=== PATIENT | female | born 1970 | race African-American/Black ===

== ENCOUNTER 2017-12-29 10:22 | Inpatient (IN) | payer MEDICARE, OTHER ==
[2017-12-29] MEDS ORDERED: IBUPROFEN 400 MG TABLET (FP) PO ONE ×2 (12:30→12:41)
[2017-12-29 12:59] LABS: BASO % 0.4 % (0-2.0); EOS % 0.3 % (0-4.5); HEMATOCRIT 30.6 % (32.4-45.2); LYMPH % 7.5 % (8-40); MCH 26.9 pg (25.7-33.7); MCHC 32.6 g/dl (32.0-36.0); MEAN CELL VOLUME 82.7 fl (80-96); MEAN PLT VOLUME 6.6 fl (7.5-11.1); MONO % 4.2 % (3.8-10.2); NEUT % 87.6 % (42.8-82.8); PLATELET COUNT 523 K/MM3 (134-434); RBC 3.69 M/mm3 (3.60-5.2); RDW 14.3 % (11.6-15.6); WHITE BLOOD COUNT 21.9 K/mm3 (4.0-10.0)
[2017-12-29 13:01] LABS: URINE APPEARANCE CLEAR; URINE BILIRUBIN NEGATIVE (<2.0 mg/dL); URINE COLOR STRAW; URINE GLUCOSE (UA) NEGATIVE (NEGATIVE); URINE KETONE NEGATIVE (NEGATIVE); URINE LEUK ESTERASE NEGATIVE (NEGATIVE); URINE NITRITE NEGATIVE (NEGATIVE); URINE PROTEIN NEGATIVE (NEGATIVE); URINE UROBILINOGEN NEGATIVE mg/dL (0.2-1.0)
--- NOTE | 2017-12-29 13:01 | PDOC ---
History of Present Illness - General Chief Complaint: Cold Symptoms Stated Complaint: FLU LIKE SYMPTOMS Time Seen by Provider: 12/29/17 12:29 History Source: Patient Exam Limitations: No Limitations - History of Present Illness Initial Comments: 12/29/17 12:52 47 yr female with c/o fever, chills started last night with lower abd pain to the left side. no vaginal discharge neg nvd neg back pain or urinary complaints. Pt states the lower abd pain comes and comes denies diarrhea or constipation. no sick contacts , recent cruise to [place] and [facility] , denies any rashes or insect bites. 12/29/17 14:30 Timing/Duration: reports: getting worse Severity: reports: moderate Past History - Travel Traveled outside of the country in the last 30 days: Yes If so, where?: [facility] Close contact w/someone who was outside of country & ill: No - Past Medical History Allergies/Adverse Reactions: Allergies Allergy/AdvReac Type Severity Reaction Status Date / Time No Known Allergies Allergy Verified 12/29/17 10:35 Home Medications: Ambulatory Orders Amlodipine Besylate [Norvasc -] 10 mg PO DAILY 12/29/17 Bupropion HCl [Bupropion HCl Sr] 100 mg PO BID 12/29/17 Cyclobenzaprine HCl 5 mg PO DAILY PRN 12/29/17 Famotidine [Pepcid] 40 mg PO DAILY 12/29/17 Lisinopril/Hydrochlorothiazide [Lisinopril-Hctz 20-12.5 mg Tab] 1 each PO DAILY 12/29/17 Mirtazapine [Remeron -] 30 mg PO DAILY 12/29/17 - Surgical History Abdominal Surgery: Yes ([facility] august 2017) - Suicide/Smoking/Psychosocial Hx Smoking History: Never smoked Have you smoked in the past 12 months: No Information on smoking cessation initiated: No Hx Alcohol Use: No Drug/Substance Use Hx: No *Physical Exam - Vital Signs Last Vital Signs Temp Pulse Resp BP Pulse Ox 103.1 F H 120 H 16 143/76 97 12/29/17 10:32 12/29/17 10:32 12/29/17 10:32 12/29/17 10:32 12/29/17 10:32 - Physical Exam General Appearance: Yes: Nourished, Appropriately Dressed HEENT: positive: EOMI, ATIF, TMs Normal, Pharynx Normal Neck: positive: Supple. negative: Tender Respiratory/Chest: positive: Lungs Clear, Normal Breath Sounds. negative: Chest Tender Cardiovascular: positive: Regular Rhythm, Regular Rate Gastrointestinal/Abdominal: positive: Normal Bowel Sounds, Soft Lymphatic: negative: Adenopathy Musculoskeletal: positive: Normal Inspection Extremity: positive: Normal Capillary Refill, Normal Inspection, Normal Range of Motion Integumentary: positive: Normal Color, Dry, Warm Neurologic: positive: Fully Oriented, Alert, Normal Mood/Affect, Normal Response , Motor Strength 07/24 ED Treatment Course - LABORATORY CBC & Chemistry Diagram: 12/30/17 06:00 12/30/17 06:30 - Medications Given in the ED: ED Medications Discontinued Medications Generic Name Dose Route Start Last Admin Trade Name Freq PRN Reason Stop Dose Admin Ibuprofen 800 mg 12/29/17 12:30 12/29/17 12:42 Motrin - PO 12/29/17 12:31 800 mg ONCE ONE Administration Medical Decision Making - Medical Decision Making 12/29/17 13:01 cc: fever chills since last night neg cough neg nvd will r/o flu r/o UTI, r/o colitis, diverticulitus 12/29/17 14:31 pt c/o feeling hungry. 12/29/17 15:30 12/29/17 15:37 temp 98.1 HR 83 RR 14 pulse ox 100% 12/29/17 17:14 spoke to RENAL and will consult on the patient agrees with the admission. continue ceftriaxone. will place ID consult . 12/29/17 17:20 spoke to and will accept admission. pt is aware and is stable at this time. *DC/Admit/Observation/Transfer Diagnosis at time of Disposition: Pyelonephritis, acute, Kidney abscess - Discharge Dispostion Condition at time of disposition: Good Decision to Admit order: Yes - Referrals - Patient Instructions - Post Discharge Activity
[2017-12-29 13:26] LABS: ALK PHOS 162 U/L (45-117); ANION GAP 5 MMOL/L (8-16); BILIRUBIN,TOTAL 0.4 mg/dL (0.2-1); BLOOD UREA NITROGEN 7 mg/dL (7-18); CHLORIDE 101 mmol/L (98-107); CO2 29 mmol/L (21-32); CREATININE 1.1 mg/dL (0.55-1.3); GLUCOSE,RANDOM 113 mg/dL (74-106); POTASSIUM 3.7 mmol/L (3.5-5.1); SGOT/AST 30 U/L (15-37); SGPT/ALT 24 U/L (13-61); SODIUM 136 mmol/L (136-145); TOT PROT 7.6 g/dl (6.4-8.2)
[2017-12-29 13:42] LABS: ANISOCYTOSIS 3+; MACROCYTOSIS 0; PLATELET ESTIMATE INCREASED; TEAR DROP CELLS 1+
[2017-12-29] MEDS ORDERED: CEFAZOLIN 1 GM in DEXTROSE 5%-WATER - 50 ML IVPB STA (14:13)
[2017-12-29] MEDS ORDERED: ceFAZolin SODIUM 1 GM VIAL ONE (14:22)
[2017-12-29] MEDS ORDERED: SODIUM CHLORIDE 1,000 ML IV SCH (16:45)
--- NOTE | 2017-12-29 18:17 | PDOC ---
*Physical Exam - Vital Signs Last Vital Signs Temp Pulse Resp BP Pulse Ox 98.6 F 75 15 108/61 100 12/29/17 16:50 12/29/17 16:50 12/29/17 16:50 12/29/17 16:50 12/29/17 16:50 ED Treatment Course - LABORATORY CBC & Chemistry Diagram: 12/29/17 12:40 12/29/17 12:40 - ADDITIONAL ORDERS Additional order review: Laboratory Results 12/29/17 12/29/17 12:40 12:40 Sodium 136 Potassium 3.7 Chloride 101 Carbon Dioxide 29 Anion Gap 5 L BUN 7 Creatinine 1.1 Creat Clearance w eGFR 52.79 Random Glucose 113 H Calcium 9.0 Total Bilirubin 0.4 AST 30 ALT 24 Alkaline Phosphatase 162 H Total Protein 7.6 Albumin 3.0 L Urine Color Straw Urine Appearance Clear Urine pH 6.0 Ur Specific [place] 1.005 L Urine Protein Negative Urine Glucose (UA) Negative Urine Ketones Negative Urine Blood Negative Urine Nitrite Negative Urine Bilirubin Negative Urine Urobilinogen Negative Ur Leukocyte Esterase Negative 12/29/17 12:40 Influenza Types A,B Antigen - Final Nasopharyngeal Swab - Final 12/29/17 12:40 RBC 3.69 MCV 82.7 MCHC 32.6 RDW 14.3 MPV 6.6 L Neutrophils % 87.6 H Lymphocytes % 7.5 L Monocytes % 4.2 Eosinophils % 0.3 Basophils % 0.4 - Medications Given in the ED: ED Medications Discontinued Medications Generic Name Dose Route Start Last Admin Trade Name Freq PRN Reason Stop Dose Admin Cefazolin Sodium 1 gm/ 50 mls @ 100 mls/hr 12/29/17 14:13 12/29/17 15:27 Dextrose IVPB 12/29/17 14:42 100 mls/hr ONCE STA Administration Ibuprofen 800 mg 12/29/17 12:30 12/29/17 12:42 Motrin - PO 12/29/17 12:31 800 mg ONCE ONE Administration Medical Decision Making - Medical Decision Making 12/29/17 18:17 Pt seen by Midlevel Provider under my direct supervision Pt interviewed and examined Ancillary studies reviewed I agree with plan as outlined by Midlevel Provider *DC/Admit/Observation/Transfer Diagnosis at time of Disposition: Pyelonephritis, acute, Kidney abscess - Discharge Dispostion Condition at time of disposition: Good - Referrals - Patient Instructions - Post Discharge Activity
--- NOTE | 2017-12-29 20:11 | HP ---
Admitting History and Physical - Primary Care Physician PCP: Kanika Adams - Admission Chief Complaint: abd pain History of Present Illness: 47 yr female with c/o fever, chills started last night with lower abd pain to the left side. no vaginal discharge neg nvd neg back pain or urinary complaints. Pt states the lower abd pain comes and comes denies diarrhea or constipation. no sick contacts , recent cruise to [place] and [facility] , denies any rashes or insect bites. - Past Medical History Cardiovascular: Yes: HTN - Smoking History Smoking history: Never smoked Have you smoked in the past 12 months: No - Alcohol/Substance Use Hx Alcohol Use: No Home Medications - Allergies Allergies/Adverse Reactions: Allergies Allergy/AdvReac Type Severity Reaction Status Date / Time No Known Allergies Allergy Verified 12/29/17 10:35 - Home Medications Home Medications: Ambulatory Orders Amlodipine Besylate [Norvasc -] 10 mg PO DAILY 12/29/17 Bupropion HCl [Bupropion HCl Sr] 100 mg PO BID 12/29/17 Cyclobenzaprine HCl 5 mg PO DAILY PRN 12/29/17 Famotidine [Pepcid] 40 mg PO DAILY 12/29/17 Lisinopril/Hydrochlorothiazide [Lisinopril-Hctz 20-12.5 mg Tab] 1 each PO DAILY 12/29/17 Mirtazapine [Remeron -] 30 mg PO DAILY 12/29/17 Physical Examination Vital Signs: Vital Signs Temperature 98.6 F 12/29/17 16:50 Pulse Rate 75 12/29/17 16:50 Respiratory Rate 15 12/29/17 16:50 Blood Pressure 108/61 12/29/17 16:50 O2 Sat by Pulse Oximetry (%) 100 12/29/17 16:50 Constitutional: Yes: No Distress HENT: Yes: Atraumatic Neck: Yes: Supple Cardiovascular: Yes: Regular Rate and Rhythm Respiratory: Yes: CTA Bilaterally Gastrointestinal: Yes: Normal Bowel Sounds Extremities: Yes: WNL Edema: No Peripheral Pulses WNL: Yes Neurological: Yes: Alert, Oriented ...Motor Strength: WNL Labs: CBC, BMP 12/29/17 12:40 12/29/17 12:40 Imaging - Results X-ray: Report Reviewed Cat Scan: Report Reviewed Problem List - Problems (1) Kidney abscess Code(s): N15.1 - RENAL AND PERINEPHRIC ABSCESS (2) Pyelonephritis, acute Code(s): N10 - ACUTE PYELONEPHRITIS Assessment/Plan Laboratory Tests 12/29/17 12/29/17 12/29/17 12:40 12:40 12:40 WBC 21.9 H RBC 3.69 Hgb 10.0 L Hct 30.6 L MCV 82.7 MCH 26.9 MCHC 32.6 RDW 14.3 Plt Count 523 H MPV 6.6 L Absolute Neuts (auto) 19.2 H Neutrophils % 87.6 H Neutrophils % (Manual) 79.4 Band Neutrophils % 6.2 Lymphocytes % 7.5 L Lymphocytes % (Manual) 7.2 L Monocytes % 4.2 Monocytes % (Manual) 5 Eosinophils % 0.3 Eosinophils % (Manual) 0.0 Basophils % 0.4 Basophils % (Manual) 0.0 Myelocytes % (Man) 0 Promyelocytes % (Man) 0 Blast Cells % (Manual) 0 Nucleated RBC % 0 Metamyelocytes 0 Hypochromia 0 Platelet Estimate Increased Polychromasia 1+ Poikilocytosis 0 Anisocytosis 3+ Microcytosis 3+ Macrocytosis 0 Tear Drop Cells 1+ Sodium 136 Potassium 3.7 Chloride 101 Carbon Dioxide 29 Anion Gap 5 L BUN 7 Creatinine 1.1 Creat Clearance w eGFR 52.79 Random Glucose 113 H Calcium 9.0 Total Bilirubin 0.4 AST 30 ALT 24 Alkaline Phosphatase 162 H Total Protein 7.6 Albumin 3.0 L Urine Color Straw Urine Appearance Clear Urine pH 6.0 Ur Specific [place] 1.005 L Urine Protein Negative Urine Glucose (UA) Negative Urine Ketones Negative Urine Blood Negative Urine Nitrite Negative Urine Bilirubin Negative Urine Urobilinogen Negative Ur Leukocyte Esterase Negative Active Medications Generic Name Dose Route Start Last Admin Trade Name Freq PRN Reason Stop Dose Admin Acetaminophen 650 mg 12/29/17 20:07 Tylenol - PO Q6H PRN FEVER Amlodipine Besylate 10 mg 12/30/17 10:00 Norvasc - PO DAILY SAM Sodium Chloride 1,000 mls @ 150 mls/hr 12/29/17 16:45 12/29/17 18:32 Normal Saline - IV 150 mls/hr ASDIR SAM Administration Mirtazapine 30 mg 12/30/17 10:00 Remeron - PO DAILY SAM Non-Formulary Medication 100 mg 12/29/17 22:00 Bupropion Hcl [Bupropion Hcl Sr] PO BID SAM
[2017-12-29] MEDS ORDERED: buPROPion HCL 100 MG TABLET ONE (21:08)
[2017-12-29] MEDS ORDERED: MIRTAZAPINE 15 MG TABLET (FP) ONE (21:09)
[2017-12-29] MEDS: buPROPion HCL 100 MG TABLET PO SCH (21:33)
[2017-12-29] MEDS: MIRTAZAPINE 30 MG TABLET (FP) PO SCH (21:34)
[2017-12-30] MEDS: ACETAMINOPHEN 325 MG TABLET (FP) PO PRN (06:15)
[2017-12-30] MEDS ORDERED: ACETAMINOPHEN 325 MG TABLET (FP) ONE (06:26)
[2017-12-30 06:58] LABS: BASO % 0.5 % (0-2.0); EOS % 1.8 % (0-4.5); HEMATOCRIT 28.5 % (32.4-45.2); HEMOGLOBIN 9.3 GM/dL (10.7-15.3); LYMPH % 23.3 % (8-40); MCH 27.3 pg (25.7-33.7); MCHC 32.7 g/dl (32.0-36.0); MEAN CELL VOLUME 83.5 fl (80-96); MEAN PLT VOLUME 6.9 fl (7.5-11.1); MONO % 10.3 % (3.8-10.2); NEUT % 64.1 % (42.8-82.8); PLATELET COUNT 510 K/MM3 (134-434); RBC 3.42 M/mm3 (3.60-5.2); RDW 14.4 % (11.6-15.6); WHITE BLOOD COUNT 13.2 K/mm3 (4.0-10.0)
[2017-12-30 07:22] LABS: ALBUMIN 2.7 g/dl (3.4-5.0); ALK PHOS 155 U/L (45-117); ANION GAP 6 MMOL/L (8-16); BILIRUBIN,TOTAL 0.2 mg/dL (0.2-1); BLOOD UREA NITROGEN 7 mg/dL (7-18); CALCIUM 8.6 mg/dL (8.5-10.1); CHLORIDE 103 mmol/L (98-107); CO2 28 mmol/L (21-32); CREATININE 0.9 mg/dL (0.55-1.3); GLUCOSE,RANDOM 94 mg/dL (74-106); POTASSIUM 3.9 mmol/L (3.5-5.1); SGOT/AST 27 U/L (15-37); SGPT/ALT 27 U/L (13-61); SODIUM 138 mmol/L (136-145)
[2017-12-30] MEDS: buPROPion HCL 100 MG TABLET PO SCH ×2 (09:46→22:43)
[2017-12-30] MEDS ORDERED: amLODIPine BESYLATE 10 MG TABLET (FP) PO SCH (10:00)
[2017-12-30] MEDS ORDERED: PIPERACILLIN/TAZOB 3.375 GM 3.375 GM in DEXTROSE 5%-WATER - 50 ML IVPB ONE (10:50)
--- NOTE | 2017-12-30 15:11 | CONSULT ---
Consult - text type - Consultation Consultation Note: Renal consult for pylonephritis and complex cyst vs. abcess This is a 47 year old AA woman with history of hypertension who presented with chills and found to have high grade fever with pylonephritis and lesion on left kidney. Pt denies any history of kidney cyst in the past. Denies any flank pain. Fevers have improved. Making urine w/o difficulty. No N/V/D. No CP or sob. Was treated for UTI and Chlamydia a few weeks ago. No dysuria, hematuria at the present time. PMhx: As above Allergies: NKDA Family Hx: NC Social hx: No T/A/D ROS: as per HPI, all other pertinent ros negative Home Medications Medication Instructions Recorded Amlodipine Besylate [Norvasc -] 10 mg PO DAILY 12/29/17 Bupropion HCl [Bupropion HCl Sr] 100 mg PO BID 12/29/17 Cyclobenzaprine HCl 5 mg PO DAILY PRN 12/29/17 Famotidine [Pepcid] 40 mg PO DAILY 12/29/17 Lisinopril/Hydrochlorothiazide 1 each PO DAILY 12/29/17 [Lisinopril-Hctz 20-12.5 mg Tab] Mirtazapine [Remeron -] 30 mg PO DAILY 12/29/17 Vital Signs Temperature 98.6 F 12/30/17 14:20 Pulse Rate 75 12/30/17 14:20 Respiratory Rate 20 12/30/17 14:20 Blood Pressure 90/47 L 12/30/17 14:20 O2 Sat by Pulse Oximetry (%) 99 12/29/17 21:53 Intake & Output 12/27/17 12/28/17 12/29/17 12/30/17 23:59 23:59 23:59 23:59 Intake Total 240 Balance 240 Weight 86.183 kg NAD awake and alert on room air neck suupple, no JVD RRR, No M/R CTA no rales or wheeze soft NT/ND, no bladder distension no CVA tenderness no LE edema CBC, BMP 12/30/17 06:00 12/30/17 06:30 Current Medications Acetaminophen (Tylenol -) 650 mg PO Q6H PRN PRN Reason: FEVER Last Admin: 12/30/17 06:15 Dose: 650 mg Bupropion HCl (Wellbutrin -) 100 mg PO BID SAM Last Admin: 12/30/17 09:46 Dose: 100 mg Mirtazapine (Remeron -) 30 mg PO HS [facility] Last Admin: 12/29/17 21:34 Dose: 30 mg 47 year old AA woman with history of hypertension who presented with chills and found to have high grade fever with pylonephritis and lesion on left kidney. #Pylonephritis #Sepsis #Cyst vs. abcess on kidney #Anemia #Hx of hypertension Continue Abx as per ID f/u cultures, urine cultures w/o growth to date Urology consult as pt may need possible abcess drainage plan for US of kidney tomorrow, may need MRI prior to discharge Check iron profile holding antihypertensives because of marginal BP start isotonic saline at 84cc per hour trend renal function and electrolytes Thank you Constantine Garay DO
[2017-12-30] MEDS: SODIUM CHLORIDE 1,000 ML IV SCH (15:39)
--- NOTE | 2017-12-30 16:28 | PN ---
Progress Note (short form) - Note Progress Note: Patient seen and examined. Patient has either a 2 cm renal cyst or renal abscess. Recommend intravenous antibiotics for now and if she improves can discharge home tomorrow on oral antibiotics if she has stopped having fevers. If patient currently does not improve would recommend percutaneous drainage of abscess. Full note to follow.
[2017-12-30 17:05] VITALS: BMI 36.4
[2017-12-30] MEDS ORDERED: FLU VACCINE QUAD 60 MCG/0.5 ML (MDV 18-19) IM ONE (17:45)
[2017-12-30] MEDS ORDERED: PIPERACILLIN/TAZOBACTAM 3.375 GM VIAL IVPB ONE ×2 (18:00→20:52)
[2017-12-30] MEDS ORDERED: DEXTROSE 5%-WATER - 50 ML IVPB ONE ×2 (18:00→20:52)
[2017-12-30] MEDS: PIPERACILLIN/TAZOB 3.375 GM 3.375 GM in DEXTROSE 5%-WATER - 50 ML IVPB SCH (18:23)
--- NOTE | 2017-12-30 18:50 | PN ---
Progress Note, Physician - Current Medication List Current Medications: Active Medications Acetaminophen (Tylenol -) 650 mg PO Q6H PRN PRN Reason: FEVER Last Admin: 12/30/17 06:15 Dose: 650 mg Bupropion HCl (Wellbutrin -) 100 mg PO BID SAM Last Admin: 12/30/17 09:46 Dose: 100 mg Sodium Chloride (Normal Saline -) 1,000 mls @ 83 mls/hr IV ASDIR SAM Last Admin: 12/30/17 15:39 Dose: 83 mls/hr Piperacillin Sod/Tazobactam (Sod 3.375 gm/ Dextrose) 50 mls @ 100 mls/hr IVPB Q8H-IV SAM; Protocol Last Admin: 12/30/17 18:23 Dose: 100 mls/hr Mirtazapine (Remeron -) 30 mg PO HS SAM Last Admin: 12/29/17 21:34 Dose: 30 mg - Objective Vital Signs: Vital Signs Temperature 99.0 F 12/30/17 17:06 Pulse Rate 86 12/30/17 17:06 Respiratory Rate 18 12/30/17 17:06 Blood Pressure 139/59 L 12/30/17 17:06 O2 Sat by Pulse Oximetry (%) 99 12/30/17 17:31 Constitutional: Yes: No Distress HENT: Yes: Atraumatic Neck: Yes: Supple Cardiovascular: Yes: Regular Rate and Rhythm Respiratory: Yes: CTA Bilaterally Gastrointestinal: Yes: Normal Bowel Sounds Extremities: Yes: WNL Edema: No Peripheral Pulses WNL: Yes Neurological: Yes: Alert, Oriented Labs: CBC, BMP 12/30/17 06:00 12/30/17 06:30 Problem List - Problems (1) Kidney abscess Assessment/Plan: on iv abx urology note seen Code(s): N15.1 - RENAL AND PERINEPHRIC ABSCESS (2) Pyelonephritis, acute Assessment/Plan: on iv abx Code(s): N10 - ACUTE PYELONEPHRITIS
[2017-12-30] MEDS: PANTOPRAZOLE 40 MG TABLET (FP) PO SCH (20:30)
[2017-12-30] MEDS ORDERED: PT OWN MED DRAWER 7, Y5N ONE (20:52)
[2017-12-30] MEDS: MIRTAZAPINE 30 MG TABLET (FP) PO SCH (22:43)
[2017-12-31] MEDS: PIPERACILLIN/TAZOB 3.375 GM 3.375 GM in DEXTROSE 5%-WATER - 50 ML IVPB SCH ×3 (01:00→17:06)
[2017-12-31 07:48] LABS: BASO % 0.4 % (0-2.0); EOS % 1.8 % (0-4.5); HEMATOCRIT 27.5 % (32.4-45.2); HEMOGLOBIN 9.1 GM/dL (10.7-15.3); LYMPH % 31.5 % (8-40); MCH 28.1 pg (25.7-33.7); MCHC 33.1 g/dl (32.0-36.0); MEAN CELL VOLUME 84.9 fl (80-96); MEAN PLT VOLUME 7.1 fl (7.5-11.1); MONO % 14.9 % (3.8-10.2); NEUT % 51.4 % (42.8-82.8); PLATELET COUNT 472 K/MM3 (134-434); RBC 3.24 M/mm3 (3.60-5.2); RDW 14.7 % (11.6-15.6); WHITE BLOOD COUNT 9.4 K/mm3 (4.0-10.0)
[2017-12-31 08:06] LABS: ALBUMIN 2.5 g/dl (3.4-5.0); ALK PHOS 149 U/L (45-117); ANION GAP 6 MMOL/L (8-16); BILIRUBIN,TOTAL 0.1 mg/dL (0.2-1); BLOOD UREA NITROGEN 6 mg/dL (7-18); CALCIUM 8.4 mg/dL (8.5-10.1); CHLORIDE 107 mmol/L (98-107); CO2 30 mmol/L (21-32); CREATININE 0.9 mg/dL (0.55-1.3); GLUCOSE,RANDOM 79 mg/dL (74-106); MAGNESIUM 2.1 mg/dL (1.8-2.4); SGOT/AST 29 U/L (15-37); SGPT/ALT 30 U/L (13-61); SODIUM 143 mmol/L (136-145); TOT PROT 6.6 g/dl (6.4-8.2)
[2017-12-31] MEDS ORDERED: DEXTROSE 5%-WATER - 50 ML IVPB ONE ×2 (09:26→16:58)
[2017-12-31] MEDS ORDERED: PIPERACILLIN/TAZOBACTAM 3.375 GM VIAL IVPB ONE ×2 (09:26→16:58)
[2017-12-31] MEDS: ACETAMINOPHEN 325 MG TABLET (FP) PO PRN (10:04)
[2017-12-31] MEDS: PANTOPRAZOLE 40 MG TABLET (FP) PO SCH (10:05)
[2017-12-31] MEDS: SODIUM CHLORIDE 1,000 ML IV SCH ×2 (10:08→21:45)
--- NOTE | 2017-12-31 10:10 | EKG ---
Test Reason : Blood Pressure : / mmHG Vent. Rate : 119 BPM Atrial Rate : 119 BPM P-R Int : 122 ms QRS Dur : 072 ms QT Int : 304 ms P-R-T Axes : 065 029 005 degrees QTc Int : 427 ms SINUS TACHYCARDIA POSSIBLE LEFT ATRIAL ENLARGEMENT NONSPECIFIC ST ABNORMALITY NO PREVIOUS ECGS AVAILABLE Confirmed by JYOTHI HERNANDEZ MD ([id number]) on 12/31/2017 10:10:20 AM Referred By: Confirmed By:JYOTHI HERNANDEZ MD
[2017-12-31] MEDS: buPROPion HCL 100 MG TABLET PO SCH ×2 (10:25→21:46)
--- NOTE | 2017-12-31 11:26 | CON.ID ---
Consult Consult Specialty:: infectious diseases Referred by:: Reason for Consultation:: uti,pyelo - History of Present Illness Chief Complaint: abd pain History of Present Illness: 47 yr female with c/o fever, chills started last night with lower abd pain to the left side. no vaginal discharge neg nvd neg back pain or urinary complaints. Pt states the lower abd pain comes and comes denies diarrhea or constipation. no sick contacts , recent cruise to [place] and [facility] , denies any rashes or insect bites. according to the patient she did not have back or flank pain,the pain would not go away so the patient came to the hospital currently she has some discomfort but otherwise doing well she did spike a fever when she came to the hospital - History Source History Provided By: Patient Limitations to Obtaining History: No Limitations - Past Medical History Cardio/Vascular: Yes: HTN ...LMP: 07/20/17 ...LMP Comment: hysterectomy ...: No - Alcohol/Substance Use Hx Alcohol Use: No - Smoking History Smoking history: Current every day smoker Have you smoked in the past 12 months: Yes Aproximately how many cigarettes per day: 6 If you are a former smoker, when did you quit?: 3 days ago Home Medications - Allergies Allergies/Adverse Reactions: Allergies Allergy/AdvReac Type Severity Reaction Status Date / Time No Known Allergies Allergy Verified 12/29/17 10:35 - Home Medications Home Medications: Ambulatory Orders Amlodipine Besylate [Norvasc -] 10 mg PO DAILY 12/29/17 Bupropion HCl [Bupropion HCl Sr] 100 mg PO BID 12/29/17 Cyclobenzaprine HCl 5 mg PO DAILY PRN 12/29/17 Famotidine [Pepcid] 40 mg PO DAILY 12/29/17 Lisinopril/Hydrochlorothiazide [Lisinopril-Hctz 20-12.5 mg Tab] 1 each PO DAILY 12/29/17 Mirtazapine [Remeron -] 30 mg PO DAILY 12/29/17 Review of Systems - Review of Systems Constitutional: reports: Fever Eyes: reports: No Symptoms HENT: reports: No Symptoms Neck: reports: No Symptoms Cardiovascular: reports: No Symptoms Respiratory: reports: No Symptoms Gastrointestinal: reports: Abdominal Pain Genitourinary: reports: No Symptoms Musculoskeletal: reports: No Symptoms Integumentary: reports: No Symptoms Neurological: reports: No Symptoms Endocrine: reports: No Symptoms Hematology/Lymphatic: reports: No Symptoms Psychiatric: reports: No Symptoms Physical Exam Vital Signs: Vital Signs Temperature 99.4 F 12/31/17 10:56 Pulse Rate 83 12/31/17 10:56 Respiratory Rate 18 12/31/17 10:56 Blood Pressure 117/87 12/31/17 10:56 O2 Sat by Pulse Oximetry (%) 99 12/30/17 21:00 Constitutional: Yes: Well Nourished, Calm, Mild Distress, Obese Eyes: Yes: Conjunctiva Clear Cardiovascular: Yes: Regular Rate and Rhythm Respiratory: Yes: Regular, CTA Bilaterally Gastrointestinal: Yes: Normal Bowel Sounds, Soft Renal/: No: CVA Tenderness - Left, CVA Tenderness - Right Musculoskeletal: Yes: WNL Extremities: Yes: WNL Neurological: Yes: Alert, Oriented Psychiatric: Yes: Alert, Oriented Labs: CBC, BMP 12/31/17 06:00 12/31/17 06:00 Imaging - Results Chest X-ray: Report Reviewed, Image Reviewed Cat Scan: Report Reviewed, Image Reviewed Assessment/Plan imaging studies showing pyelo and cyst vs abscess Problem List - Problems (1) Kidney abscess Code(s): N15.1 - RENAL AND PERINEPHRIC ABSCESS (2) Pyelonephritis, acute Code(s): N10 - ACUTE PYELONEPHRITIS plan will start patient on zosyn urology on case close watch for fevers rest as per the team
--- NOTE | 2017-12-31 11:37 | PN ---
Progress Note, Physician History of Present Illness: doing well temp in 99 no pain - Current Medication List Current Medications: Active Medications Acetaminophen (Tylenol -) 650 mg PO Q6H PRN PRN Reason: FEVER Last Admin: 12/31/17 10:04 Dose: 650 mg Bupropion HCl (Wellbutrin -) 100 mg PO BID SAM Last Admin: 12/31/17 10:25 Dose: 100 mg Sodium Chloride (Normal Saline -) 1,000 mls @ 83 mls/hr IV ASDIR SAM Last Admin: 12/31/17 10:08 Dose: 83 mls/hr Piperacillin Sod/Tazobactam (Sod 3.375 gm/ Dextrose) 50 mls @ 100 mls/hr IVPB Q8H-IV SAM; Protocol Last Admin: 12/31/17 10:05 Dose: 100 mls/hr Mirtazapine (Remeron -) 30 mg PO HS SAM Last Admin: 12/30/17 22:43 Dose: 30 mg Pantoprazole Sodium (Protonix -) 40 mg PO DAILY SAM Last Admin: 12/31/17 10:05 Dose: 40 mg - Objective Vital Signs: Vital Signs Temperature 99.4 F 12/31/17 10:56 Pulse Rate 83 12/31/17 10:56 Respiratory Rate 18 12/31/17 10:56 Blood Pressure 117/87 12/31/17 10:56 O2 Sat by Pulse Oximetry (%) 99 12/30/17 21:00 Constitutional: Yes: No Distress, Calm Cardiovascular: Yes: Regular Rate and Rhythm Respiratory: Yes: Regular, CTA Bilaterally Gastrointestinal: Yes: Normal Bowel Sounds, Soft Musculoskeletal: Yes: WNL Extremities: Yes: WNL Neurological: Yes: Alert, Oriented Psychiatric: Yes: Alert, Oriented Labs: CBC, BMP 12/31/17 06:00 12/31/17 06:00 Assessment/Plan imaging studies showing pyelo and cyst vs abscess Problem List - Problems (1) Kidney abscess Code(s): N15.1 - RENAL AND PERINEPHRIC ABSCESS (2) Pyelonephritis, acute Code(s): N10 - ACUTE PYELONEPHRITIS all cx results noted plan continue abx if patient remains stable might change abx to oral tomorrow will give it for couple of days might need imaging in couple of weeks for follow up
--- NOTE | 2017-12-31 16:15 | PN ---
Progress Note, Physician - Current Medication List Current Medications: Active Medications Acetaminophen (Tylenol -) 650 mg PO Q6H PRN PRN Reason: FEVER Last Admin: 12/31/17 10:04 Dose: 650 mg Bupropion HCl (Wellbutrin -) 100 mg PO BID SAM Last Admin: 12/31/17 10:25 Dose: 100 mg Sodium Chloride (Normal Saline -) 1,000 mls @ 83 mls/hr IV ASDIR SAM Last Admin: 12/31/17 10:08 Dose: 83 mls/hr Piperacillin Sod/Tazobactam (Sod 3.375 gm/ Dextrose) 50 mls @ 100 mls/hr IVPB Q8H-IV SAM; Protocol Last Admin: 12/31/17 10:05 Dose: 100 mls/hr Mirtazapine (Remeron -) 30 mg PO HS SAM Last Admin: 12/30/17 22:43 Dose: 30 mg Pantoprazole Sodium (Protonix -) 40 mg PO DAILY SAM Last Admin: 12/31/17 10:05 Dose: 40 mg - Objective Vital Signs: Vital Signs Temperature 98.6 F 12/31/17 14:56 Pulse Rate 68 12/31/17 14:56 Respiratory Rate 20 12/31/17 14:56 Blood Pressure 127/59 L 12/31/17 14:56 O2 Sat by Pulse Oximetry (%) 99 12/31/17 09:00 Labs: CBC, BMP 12/31/17 06:00 12/31/17 06:00 Problem List - Problems (1) Kidney abscess Code(s): N15.1 - RENAL AND PERINEPHRIC ABSCESS (2) Pyelonephritis, acute Code(s): N10 - ACUTE PYELONEPHRITIS
--- NOTE | 2017-12-31 16:16 | CON.GU ---
Consult Consult Specialty:: Referred by:: ED Reason for Consultation:: renal cyst or abscess - History of Present Illness Chief Complaint: renal cyst or abscess History of Present Illness: 47 year old woman with recent episode of fever and chills. She has a robotic [place] [facility] [place] After [place] she reports having urinary incontinence which has improved since. CT shows a 2cm lesion in her kidney, either a complex cyst or possible a renal abscess. - History Source History Provided By: Patient, Medical Record - Past Medical History Cardio/Vascular: Yes: HTN Renal/: Yes: UTI ...LMP: 07/20/17 ...LMP Comment: hysterectomy ...: No - Alcohol/Substance Use Hx Alcohol Use: No - Smoking History Smoking history: Current every day smoker Have you smoked in the past 12 months: Yes Aproximately how many cigarettes per day: 6 If you are a former smoker, when did you quit?: 3 days ago Home Medications - Allergies Allergies/Adverse Reactions: Allergies Allergy/AdvReac Type Severity Reaction Status Date / Time No Known Allergies Allergy Verified 12/29/17 10:35 - Home Medications Home Medications: Ambulatory Orders Amlodipine Besylate [Norvasc -] 10 mg PO DAILY 12/29/17 Bupropion HCl [Bupropion HCl Sr] 100 mg PO BID 12/29/17 Cyclobenzaprine HCl 5 mg PO DAILY PRN 12/29/17 Famotidine [Pepcid] 40 mg PO DAILY 12/29/17 Lisinopril/Hydrochlorothiazide [Lisinopril-Hctz 20-12.5 mg Tab] 1 each PO DAILY 12/29/17 Mirtazapine [Remeron -] 30 mg PO DAILY 12/29/17 Review of Systems - Review of Systems Constitutional: reports: Chills, Fever Genitourinary: reports: Flank Pain Physical Exam- Vital Signs: Vital Signs Temperature 98.6 F 12/31/17 14:56 Pulse Rate 68 12/31/17 14:56 Respiratory Rate 20 12/31/17 14:56 Blood Pressure 127/59 L 12/31/17 14:56 O2 Sat by Pulse Oximetry (%) 99 12/31/17 09:00 Renal/: No: Bladder Distention, CVA Tenderness - Left, CVA Tenderness - Right , Cooper Present Labs: CBC, BMP 12/31/17 06:00 12/31/17 06:00 Imaging - Results Cat Scan: Report Reviewed Assessment/Plan pyelonephritis with possible renal abscess of 2cm. plan is to treat with IV abx and if not improved will need perc drainage.
--- NOTE | 2017-12-31 16:17 | PN ---
Progress Note (short form) - Note Progress Note: fever curve is improved,. WBC is improved, if ok with ID can switch to po abx
--- NOTE | 2017-12-31 16:18 | PN ---
Progress Note (short form) - Note Progress Note: Renal follow up for Renal Cyst vs. Abcess Pt seen and examined at the bedside no acute complaints denies any plank pain Vital Signs Temperature 98.6 F 12/31/17 14:56 Pulse Rate 68 12/31/17 14:56 Respiratory Rate 20 12/31/17 14:56 Blood Pressure 127/59 L 12/31/17 14:56 O2 Sat by Pulse Oximetry (%) 99 12/31/17 09:00 Intake & Output 12/28/17 12/29/17 12/30/17 12/31/17 23:59 23:59 23:59 23:59 Intake Total 1055 1150 Output Total 1 1 Balance 1054 1149 Weight 86.183 kg 84.731 kg NAD awake and alert RRR CTA no CVA tenderness no LE swelling CBC, BMP 12/31/17 06:00 12/31/17 06:00 Intake & Output 12/28/17 12/29/17 12/30/17 12/31/17 23:59 23:59 23:59 23:59 Intake Total 1055 1150 Output Total 1 1 Balance 1054 1149 Weight 86.183 kg 84.731 kg Current Medications Acetaminophen (Tylenol -) 650 mg PO Q6H PRN PRN Reason: FEVER Last Admin: 12/31/17 10:04 Dose: 650 mg Bupropion HCl (Wellbutrin -) 100 mg PO BID SAM Last Admin: 12/31/17 10:25 Dose: 100 mg Sodium Chloride (Normal Saline -) 1,000 mls @ 83 mls/hr IV ASDIR SAM Last Admin: 12/31/17 10:08 Dose: 83 mls/hr Piperacillin Sod/Tazobactam (Sod 3.375 gm/ Dextrose) 50 mls @ 100 mls/hr IVPB Q8H-IV SAM; Protocol Last Admin: 12/31/17 10:05 Dose: 100 mls/hr Mirtazapine (Remeron -) 30 mg PO HS SAM Last Admin: 12/30/17 22:43 Dose: 30 mg Pantoprazole Sodium (Protonix -) 40 mg PO DAILY SAM Last Admin: 12/31/17 10:05 Dose: 40 mg NAD awake and alert on room air neck suupple, no JVD RRR, No M/R CTA no rales or wheeze soft NT/ND, no bladder distension no CVA tenderness no LE edema CBC, BMP 12/30/17 06:00 12/30/17 06:30 Current Medications Acetaminophen (Tylenol -) 650 mg PO Q6H PRN PRN Reason: FEVER Last Admin: 12/30/17 06:15 Dose: 650 mg Bupropion HCl (Wellbutrin -) 100 mg PO BID SAM Last Admin: 12/30/17 09:46 Dose: 100 mg Mirtazapine (Remeron -) 30 mg PO HS SAM Last Admin: 12/29/17 21:34 Dose: 30 mg 47 year old AA woman with history of hypertension who presented with chills and found to have high grade fever with pylonephritis and lesion on left kidney. #Pylonephritis #Sepsis #Cyst vs. abcess on kidney #Anemia #Hx of hypertension US unable to differenate between abcess and cyst clinically improved Abx as pe ID can d/v IVF Thank you Constantine Garay DO
[2017-12-31] MEDS: MIRTAZAPINE 30 MG TABLET (FP) PO SCH (21:46)
[2018-01-01] MEDS ORDERED: DEXTROSE 5%-WATER - 50 ML IVPB ONE ×3 (02:52→16:56)
[2018-01-01] MEDS ORDERED: PIPERACILLIN/TAZOBACTAM 3.375 GM VIAL IVPB ONE ×3 (02:52→16:56)
[2018-01-01] MEDS: PIPERACILLIN/TAZOB 3.375 GM 3.375 GM in DEXTROSE 5%-WATER - 50 ML IVPB SCH ×3 (02:55→17:15)
[2018-01-01 06:08] LABS: SERUM IRON SATURATION 8 % (15-55); TOTAL IRON BINDING CAPACITY 216 ug/dL (250-450); UIBC 199 ug/dL (131-425)
[2018-01-01] MEDS ORDERED: PT OWN MED DRAWER 7, Y5N ONE (10:24)
[2018-01-01] MEDS: buPROPion HCL 100 MG TABLET PO SCH (10:49)
[2018-01-01] MEDS: PANTOPRAZOLE 40 MG TABLET (FP) PO SCH (10:49)
--- NOTE | 2018-01-01 11:33 | PN ---
Progress Note (short form) - Note Progress Note: Renal follow up for Renal Cyst vs. Abcess Pt seen and examined at the bedside no acute complaints denies any plank pain Vital Signs Temperature 98.4 F 01/01/18 06:13 Pulse Rate 58 L 01/01/18 06:13 Respiratory Rate 18 01/01/18 06:13 Blood Pressure 144/54 L 01/01/18 06:13 O2 Sat by Pulse Oximetry (%) 99 12/31/17 21:00 Intake & Output 12/29/17 12/30/17 12/31/17 01/01/18 23:59 23:59 23:59 23:59 Intake Total 1055 1200 50 Output Total 1 1 Balance 1054 1199 50 Weight 86.183 kg 84.731 kg NAD awake and alert RRR CTA no CVA tenderness no LE swelling CBC, BMP 12/31/17 06:00 12/31/17 06:00 Current Medications Acetaminophen (Tylenol -) 650 mg PO Q6H PRN PRN Reason: FEVER Last Admin: 12/31/17 10:04 Dose: 650 mg Bupropion HCl (Wellbutrin -) 100 mg PO BID SAM Last Admin: 01/01/18 10:49 Dose: 100 mg Sodium Chloride (Normal Saline -) 1,000 mls @ 83 mls/hr IV ASDIR SAM Last Admin: 12/31/17 21:45 Dose: Not Given Piperacillin Sod/Tazobactam (Sod 3.375 gm/ Dextrose) 50 mls @ 100 mls/hr IVPB Q8H-IV SAM; Protocol Last Admin: 01/01/18 10:49 Dose: 100 mls/hr Mirtazapine (Remeron -) 30 mg PO HS SAM Last Admin: 12/31/17 21:46 Dose: 30 mg Pantoprazole Sodium (Protonix -) 40 mg PO DAILY SAM Last Admin: 01/01/18 10:49 Dose: 40 mg 47 year old AA woman with history of hypertension who presented with chills and found to have high grade fever with pylonephritis and lesion on left kidney. #Pylonephritis #Sepsis #Cyst vs. abcess on kidney #Anemia #Hx of hypertension pt stable continue oral abx as per ID pt should follow up with urology as outpatient following completion of abx for re-imaging and possible drainage renal function is WNL Thank you Constantine Garay DO
--- NOTE | 2018-01-01 16:24 | DS ---
Physical Examination Vital Signs: Vital Signs Temperature 98.4 F 01/01/18 06:13 Pulse Rate 58 L 01/01/18 06:13 Respiratory Rate 18 01/01/18 06:13 Blood Pressure 144/54 L 01/01/18 06:13 O2 Sat by Pulse Oximetry (%) 99 12/31/17 21:00 Constitutional: Yes: No Distress HENT: Yes: Atraumatic Neck: Yes: Supple Cardiovascular: Yes: Regular Rate and Rhythm Respiratory: Yes: CTA Bilaterally Gastrointestinal: Yes: Normal Bowel Sounds Extremities: Yes: WNL Neurological: Yes: Alert, Oriented Labs: CBC, BMP 12/31/17 06:00 12/31/17 06:00 Discharge Summary Reason For Visit: RENAL ABSCESS/ACUTE PYELONPHRITIS Current Active Problems Kidney abscess (Acute) Pyelonephritis, acute (Acute) Condition: Good - Instructions Diet, Activity, Other Instructions: see your doctor in 2-3 days - Home Medications Comprehensive Discharge Medication List: Ambulatory Orders Amlodipine Besylate [Norvasc -] 10 mg PO DAILY 12/29/17 Bupropion HCl [Bupropion HCl Sr] 100 mg PO BID 12/29/17 Cyclobenzaprine HCl 5 mg PO DAILY PRN 12/29/17 Famotidine [Pepcid] 40 mg PO DAILY 12/29/17 Lisinopril/Hydrochlorothiazide [Lisinopril-Hctz 20-12.5 mg Tab] 1 each PO DAILY 12/29/17 Mirtazapine [Remeron -] 30 mg PO DAILY 12/29/17 levoFLOXacin [Levaquin] 750 mg PO DAILY #7 tab 12/31/17 [facility]
[2018-01-01] MEDS: SODIUM CHLORIDE 1,000 ML IV SCH (17:15)
[2018-01-01 19:24] VITALS: BP 130/79; PULSE 69; TEMP 99
== END 2018-01-01 18:30 | disposition home or self-care (01) | DRG 690 ==
LOC: JER 10:22 → JERFT 10:22 → JERBED 17:21 → J7W 12-30 16:28
PROVIDERS: ADMIT Internal Medicine; ATTEND Internal Medicine
DX: N10 Acute pyelonephritis (principal); N15.1 Renal and perinephric abscess; N28.1 Cyst of kidney, acquired; F17.210 Nicotine dependence, cigarettes, uncomplicated; E66.9 Obesity, unspecified; D64.9 Anemia, unspecified; I10 Essential (primary) hypertension; Z68.36 Body mass index [BMI] 36.0-36.9, adult
CPT/HCPCS: 36415; 71046-TC-FY; 74177-TC; 76775-TC; 80053; 81003; 82728; 83540; 83550; 83735; 84100; 85025; 87040; 87086; 87804; 90688; 93005; 93010; 99284-25; G0008; J7030; Q9967